=== PATIENT | male | born 2000 | race Caucasian/White ===

== ENCOUNTER 2023-06-06 07:39 | Emergency (ER) | payer OTHER ==
[2023-06-06] MEDS ORDERED: Ketorolac Tromethamine 30 MG/ML VIAL ONE (08:08)
== END 2023-06-06 09:47 | disposition home or self-care (01) ==
LOC: CSHERS 07:39
DX: M54.6 Pain in thoracic spine (principal)
CPT/HCPCS: 71046; 93005; 93010; 96372; J1885